=== PATIENT | female | born 2000 | race African-American/Black ===

== ENCOUNTER 2021-12-10 00:09 | Emergency (ER) | payer MEDICAID ==
[~2021-12-10] VITALS: Ht 162.6 cm; Wt 64.0 kg
[2021-12-10 00:33] VITALS: BP 129/66
== END 2021-12-10 03:04 | disposition left against medical advice (07) ==
LOC: ER 00:09
DX: Z53.21 Procedure and treatment not carried out due to patient leaving prior to being seen by health care provider (principal)